=== PATIENT | male | born 1985 | race Caucasian/White ===

== ENCOUNTER 2017-02-03 03:45 | Emergency (ER) | payer SELFPAY ==
[~2017-02-03] VITALS: Ht 172.7 cm; Wt 74.8 kg
[2017-02-03 03:49] VITALS: BP 135/90
== END 2017-02-03 05:03 | disposition home or self-care (01) ==
LOC: ED 04:40
DX: F10.120 Alcohol abuse with intoxication, uncomplicated (principal)
CPT/HCPCS: 99283